=== PATIENT | female | born 1980 | race Caucasian/White ===

== ENCOUNTER → 2018-11-02 | Outpatient (CLI) | payer OTHER ==
[~2018-11-02] MED LIST: IBUP-1022 PO; MONO0.25 PO; MULT1TAB16 PO; NORC1TAB7 PO; VITA250L PO; ZOLO100T PO
--- NOTE | 2018-11-03 12:00 | ECGEPIP ---
Stationary ECG Study [facility] Test Date: 2018-11-02 Pat Name: RO العراقي Department: Room: - Gender: F Coating Technician: YUDY : 1980 Requested By: Nikhil Gloria Order Number: [id number] Reading MD: Caio Sims Measurements Intervals [place] Rate: 61 P: 45 CO: 158 QRS: 51 QRSD: 90 T: -17 QT: 420 QTc: 425 Interpretive Statements SINUS RHYTHM NONSPECIFIC T-WAVE ABNORMALITY Comparison tracing not on file Electronically Signed On 11-03-2018 12:00:07 EDT by Caio Sims
== END ==
LOC: M EKG 16:11
PROVIDERS: ATTEND Anesthesiology
DX: Z01.812 Encounter for preprocedural laboratory examination (principal); I34.0 Nonrheumatic mitral (valve) insufficiency

== ENCOUNTER 2018-11-09 06:11 | Day surgery (SDC) | payer OTHER ==
[~2018-11-09] VITALS: Ht 170.2 cm; Wt 86.2 kg
[2018-11-09] VITALS (7 sets, daily range): BP systolic 126–140; BP diastolic 60–68
[~2018-11-09 06:11] MED LIST changes: +LR 1,000 ML IV SCH
[2018-11-09 06:44] LABS: HEMATOCRIT 42.2 % (36.0-47.0); HEMOGLOBIN 14.3 g/dl (12.0-15.5); MEAN CORPUSCULAR HEMOGLOBIN 30.4 pg (27.0-33.0); MEAN CORPUSCULAR HGB CONC 33.9 g/dl (32.0-36.5); MEAN CORPUSCULAR VOLUME 89.8 fl (80.0-96.0); PLATELET COUNT, AUTOMATED 186 10^3/uL (150-450); WHITE BLOOD COUNT 5.3 10^3/uL (4.0-10.0)
[2018-11-09] MEDS ORDERED: LIDOCAINE 2% INJ 100 MG/5 ML SDV (FOR ANES.) As Ordered ONE (07:11)
[2018-11-09] MEDS ORDERED: dexameTHASONE 4 MG/ML 1ML VIAL (J1100) As Ordered ONE (07:11)
[2018-11-09] MEDS ORDERED: PROPOFOL 200 MG/20 ML VIAL As Ordered ONE (07:11)
[2018-11-09] MEDS ORDERED: GLYCOPYRROLATE INJ 0.2 MG/ML 2 ML VIAL As Ordered ONE (07:11)
[2018-11-09] MEDS ORDERED: MIDAZOLAM INJ 2 MG/2 ML VIAL (J2250) As Ordered ONE (07:11)
[2018-11-09] MEDS ORDERED: NEOSTIGMINE 10 MG/10 ML VIAL (J2710) As Ordered ONE (07:11)
[2018-11-09] MEDS ORDERED: ONDANSETRON 4MG/2ML VIAL (J2405) As Ordered ONE (07:11)
[2018-11-09] MEDS ORDERED: ROCURONIUM BROMIDE 50 MG/5 ML VIAL As Ordered ONE (07:11)
[2018-11-09] MEDS ORDERED: KETOROLAC 60 MG/2 ML VIAL (J1885) As Ordered ONE (07:12)
[2018-11-09] MEDS ORDERED: fentaNYL 100 MCG/2 ML INJECTION (J3010) As Ordered ONE (07:12)
[2018-11-09] MEDS ORDERED: LIDOCAINE 5% OINT 30 GM As Ordered ONE (07:19)
[2018-11-09] MEDS ORDERED: MORPHINE 1MG/ML IN 0.9% NACL 100ML IV BAG As Ordered ONE (08:56)
[2018-11-09] MEDS ORDERED: ONDANSETRON 4MG/2ML VIAL (J2405) IV PRN (09:15)
[2018-11-09] MEDS ORDERED: LR 1,000 ML IV SCH (09:15)
[2018-11-09] MEDS: NORCO, ANEXSIA 5/325MG TABLET (HYDROcodone/ACETAMINOPHEN) PO PRN ×2 (09:24→09:54)
[2018-11-09] MEDS ORDERED: NALOXONE INJ 0.4 MG/1 ML VIAL (J2310) IV PRN (09:30)
[2018-11-09] MEDS ORDERED: diphenhydrAMINE INJ 50MG/ML VIAL (J1200) IV PRN (09:30)
[2018-11-09] MEDS ORDERED: NALBUPHINE HCL 10 MG/ML AMP (J2300) IV PRN (09:30)
[2018-11-09] MEDS ORDERED: MORPHINE 1MG/ML IN 0.9% NACL 100ML IV BAG IV PRN (09:30)
[2018-11-09] MEDS ORDERED: EPIDURAL/PCA KEYS XX PRN (09:30)
[2018-11-09] MEDS ORDERED: IBUPROFEN 600 MG TAB PO PRN (09:30)
[2018-11-09] MEDS: fentaNYL 100 MCG/2 ML INJECTION (J3010) IV PRN ×2 (09:42→09:50)
[2018-11-09] MEDS: LR 1,000 ML IV SCH ×2 (11:00→17:47)
--- NOTE | 2018-11-09 14:28 | RO ---
DATE OF PROCEDURE: 11/09/2018 PREPROCEDURE DIAGNOSIS: Bleeding and pain. Failed conservative efforts. POSTPROCEDURE DIAGNOSIS: Bleeding and pain. Failed conservative efforts. PROCEDURE: Total vaginal hysterectomy. SURGEON: Dr. Marisol Villagran. CISCO UNIFIED COMMUNICATIONS ENGINEER: None. ANESTHESIA: General endotracheal anesthesia. DESCRIPTION OF PROCEDURE: Alice was brought to the operating room where sufficient general endotracheal anesthesia was induced and she was prepped, draped and positioned in the usual sterile fashion. The cervix was grasped with a single tooth tenacula, the bladder was emptied and retractors placed. A circumferential incision was made around the base of the cervix with the cardinal ligaments isolated, clamped with de Solorzano clamps, which were used throughout the case, and transected with the Supercut scissors and then sutured with 0 Vicryl, which was also used throughout the case. After both cardinal ligaments had been clamped transected and ligated, we turned out attention to the uterosacrals, which were also clamped, transected and ligated with the peritoneum entered posteriorly and of course the uterosacral was marked for later reconnection to the cuff. We then carefully dissected anteriorly to create the anterior bladder flap protecting the bladder from field of dissection, and then gradually working along the lateral aspects of the uterus, clamped transected and ligated the uterine vasculature until the uterus could be delivered. Along the patient's left side, the tube and the ovary were very closely scarred consistent with the patient's previous tubal ligation history and I could not separate the fimbriae and bring them down without potentially risking the blood supply to that ovary. So we went ahead and dissected through the utero-ovarian suspensory ligament and the round ligament and the top part of the broad just all together as is often typical with vaginal hysterectomies. Then with that side freed, I really tried to work our way along the pedicle on the patient's right side. We got about half way along the tube and ran into further scar tissue and into the ovaries. Her ovaries are normal in appearance. She had a small benign corpus luteum cyst in the right side and we really could not free that tube from the ovary and the ovarian blood supply safely so the proximal portion of the tube came with the uterus but of course, we did not get fimbriae on either side. But we did not find any findings to be concerning and we really did not want to risk the ovarian blood supply in this 38-year-old. So we stopped there, secured our pedicles, evaluated each of them using a sponge stick to see carefully. We were able to see that we had good hemostasis and angle stitches of 0 Vicryl taken in the cuff. The uterosacrals were, of course, re-incorporated in this young individual and we closed the cuff with a running locked stitch of 0 Vicryl with good approximation and hemostasis achieved. The procedure was then ended. A Agee was placed after the case with clear urine released. ESTIMATED BLOOD LOSS: For the case is maybe 100 mL. FLUID REPLACEMENT: Crystalloid. COMPLICATIONS: None. CONDITION AND DISPOSITION: Alice tolerated the procedure well and was recovering in the recovery room in good condition.
[2018-11-09] MEDS ORDERED: SERTRALINE HCL 50 MG TAB PO SCH (21:00)
[2018-11-10] VITALS: BP 125/65
[2018-11-10] MEDS: LR 1,000 ML IV SCH (01:42)
[2018-11-10 04:00] VITALS: BP 108/53
[2018-11-10] MEDS ORDERED: NORCO, ANEXSIA 5/325MG TABLET (HYDROcodone/ACETAMINOPHEN) PO PRN (06:00)
[2018-11-10 07:31] LABS: HEMATOCRIT 34.5 % (36.0-47.0); MEAN CORPUSCULAR HGB CONC 33.9 g/dl (32.0-36.5); MEAN CORPUSCULAR VOLUME 88.5 fl (80.0-96.0); PLATELET COUNT, AUTOMATED 169 10^3/uL (150-450); WHITE BLOOD COUNT 7.1 10^3/uL (4.0-10.0)
[2018-11-10 07:47] LABS: HEMOGLOBIN 11.7 g/dl (12.0-15.5)
[2018-11-10 08:00] VITALS: BP 118/58
[2018-11-10] MEDS ORDERED: NORC1TAB7 PO (09:12)
[2018-11-10] MEDS ORDERED: ADVI100T PO (09:13)
== END 2018-11-10 10:08 | disposition home or self-care (01) ==
LOC: M SDC 06:11 → M PED 10:50 → M SDC 11-10 10:08
PROVIDERS: ATTEND Obstetrics & Gynecology
DX: R10.2 Pelvic and perineal pain (principal); N92.0 Excessive and frequent menstruation with regular cycle; F41.9 Anxiety disorder, unspecified; F32.9 Major depressive disorder, single episode, unspecified; I34.2 Nonrheumatic mitral (valve) stenosis; Z88.0 Allergy status to penicillin; Z88.1 Allergy status to other antibiotic agents; Z91.048 Other nonmedicinal substance allergy status; Z79.899 Other long term (current) drug therapy
CPT/HCPCS: 36415; 58260; 85027; 86850; 86900; 86901; 88307; 96360; 96361; J0690; J1100; J1885; J2250; J2405; J2710; J3010